=== PATIENT | female | born 1990 | race Asian ===

== ENCOUNTER 2023-08-19 17:51 | Observation (INO) | payer SELFPAY ==
[2023-08-19 18:13] VITALS: BP 109/64; BMI 33.1
== END 2023-08-19 19:07 | disposition home or self-care (01) ==
LOC: LDRP 17:51
PROVIDERS: ADMITTING PHYSICIAN Obstetrics & Gynecology; FAMILY PHYSICIAN Family Medicine
DX: O36.8130 Decreased fetal movements, third trimester, not applicable or unspecified (principal); Z3A.32 32 weeks gestation of pregnancy
CPT/HCPCS: G0378

== ENCOUNTER 2023-08-24 16:16 | Inpatient (IN) | payer OTHER, SELFPAY ==
[2023-08-24 17:00] VITALS: BP 111/60; BMI 33.1
[2023-08-24 17:02] LABS: Hematocrit 40.3 % (37.0-47.0); Hemoglobin 13.7 g/dL (12.0-16.0); Mean Corpuscular Hgb 29.9 pg (27.0-31.0); Platelet Count 133 10^3/uL (130-400); Red Blood Cell Count 4.58 10^6/uL (4.20-5.40); Red Cell Dist. Width 13.1 % (11.5-14.5); White Blood Cell Count 6.9 10^3/uL (4.8-10.8)
[2023-08-24 17:09] LABS: Urine Albumin Negative (Neg - Trace); Urine Bilirubin Negative (Negative); Urine Character Clear (Clear); Urine Color Yellow; Urine Glucose 2+ (Negative); Urine Ketone Negative (Negative); Urine Leukocyte Trace (Negative); Urine Nitrite Negative (Negative); Urine Occult Blood Negative (Negative); Urine Specific Gravity 1.015 (<1.030); Urine Urobilinogen Negative (Neg - 1+)
[2023-08-24 17:13] LABS: ALT (SGPT) 70 U/L (0-35); AST (SGOT) 39 U/L (14-36); Albumin 3.2 g/dl (3.5-5.0); Alkaline Phosphatase 117 U/L (38-126); Blood Urea Nitrogen 5 mg/dl (7-17); Calcium 8.8 mg/dl (8.4-10.2); Carbon Dioxide 22 mmol/L (22-30); Chloride 104 mmol/L (98-107); Estimated Creatinine Clearance > 125 ml/min; Glucose 123 mg/dl (70-99); Potassium 4.2 mmol/L (3.5-5.1); Sodium 134 mmol/L (135-145); Total Bilirubin 0.6 mg/dl (0.2-1.3); eGFR > 60.00
[2023-08-24 17:21] LABS: Urine Red Blood Cell None Seen /HPF (0-2); Urine Squamous Cell >30 /LPF (Few); Urine White Cell 0-2 /HPF (0-5)
[2023-08-24 17:31] LABS: Protein/creatinine Ratio 0.1; Urine Protein 7 mg/dl
[2023-08-24 20:47] LABS: % Basophils 0.2 % (0-2); % Eosinophils 0.8 % (0-6); % Immature Granulocytes 0.9 % (0-0.5); % Lymphocytes 16.2 % (20.5-51.1); % Monocytes 6.4 % (1.7-9.3); % Neutrophils 75.5 % (42.2-75.2); Absolute Eosinophils 0.1 10^3/uL (0-0.7); Absolute Immature Granulocytes 0.1 10^3/uL (0-0.05); Absolute Lymphocytes 1.5 10^3/uL (1.2-3.4); Absolute Monocytes 0.6 10^3/uL (0.1-0.6); Absolute Neutrophils 6.7 10^3/uL (1.4-6.5); Hematocrit 42.1 % (37.0-47.0); Hemoglobin 14.4 g/dL (12.0-16.0); Mean Corp Hgb Conc. 34.2 g/dL (33.0-37.0); Mean Corpuscular Hgb 29.6 pg (27.0-31.0); Mean Corpuscular Volume 86.6 fL (81.0-99.0); Mean Platelet Volume 12.7 fL (7.4-10.4); Nucleated Red Blood Cells % 0 %; Platelet Count 138 10^3/uL (130-400); Red Blood Cell Count 4.86 10^6/uL (4.20-5.40); Red Cell Dist. Width 13.1 % (11.5-14.5); White Blood Cell Count 8.9 10^3/uL (4.8-10.8)
[2023-08-24] MEDS: TYLENOL 650 MG PO (23:24)
[2023-08-24] MEDS: ACTIGALL 300 MG PO (23:26)
[2023-08-24] MEDS: LR 1000 IV (23:29)
--- NOTE | 2023-08-25 04:09 | DOWNTIME ---
There was a [employer] Client [employer] Supervisor Downtime on 08/25/2023 from 0111 to 08/25/2023 at 0405. Downtime documentation of patient's care, including medication administrations, has been reconciled in the electronic record per guidelines. Refer to the
patient's paper chart under the miscellaneous tab to see printed paper medication records and downtime forms.
[2023-08-25] MEDS: LR 1000 IV (06:30)
[2023-08-25 06:51] LABS: Hematocrit 41.4 % (37.0-47.0); Hemoglobin 14.3 g/dL (12.0-16.0); Mean Corp Hgb Conc. 34.5 g/dL (33.0-37.0); Mean Corpuscular Hgb 30.3 pg (27.0-31.0); Mean Corpuscular Volume 87.7 fL (81.0-99.0); Mean Platelet Volume 12.1 fL (7.4-10.4); Platelet Count 126 10^3/uL (130-400); Red Blood Cell Count 4.72 10^6/uL (4.20-5.40); Red Cell Dist. Width 13.1 % (11.5-14.5)
[2023-08-25 07:09] LABS: ALT (SGPT) 83 U/L (0-35); AST (SGOT) 48 U/L (14-36); Albumin 3.5 g/dl (3.5-5.0); Alkaline Phosphatase 137 U/L (38-126); Blood Urea Nitrogen 4 mg/dl (7-17); Calcium 8.8 mg/dl (8.4-10.2); Carbon Dioxide 21 mmol/L (22-30); Chloride 109 mmol/L (98-107); Estimated Creatinine Clearance > 125 ml/min; Glucose 87 mg/dl (70-99); Potassium 4.1 mmol/L (3.5-5.1); Sodium 134 mmol/L (135-145); Total Bilirubin 0.9 mg/dl (0.2-1.3); Total Protein 6.2 g/dl (6.3-8.2); eGFR > 60.00
[2023-08-25] MEDS: TYLENOL 1000 MG PO (07:09)
[2023-08-25] MEDS: ANCEF 10 IV (07:10)
[2023-08-25] MEDS: BICITRA 30 ML PO (07:10)
[2023-08-25] MEDS: BENADRYL 25 MG IV (11:25)
[2023-08-25] MEDS: TORADOL 15 MG IV ×2 (14:10→20:29)
[2023-08-25] MEDS: ACTIGALL 300 MG PO (20:29)
[2023-08-26] MEDS: TORADOL 15 MG IV ×2 (02:04→08:32)
[2023-08-26 05:55] LABS: Hematocrit 33.5 % (37.0-47.0); Hemoglobin 11.6 g/dL (12.0-16.0); Mean Corp Hgb Conc. 34.6 g/dL (33.0-37.0); Mean Corpuscular Hgb 29.9 pg (27.0-31.0); Mean Corpuscular Volume 86.3 fL (81.0-99.0); Mean Platelet Volume 12.2 fL (7.4-10.4); Platelet Count 116 10^3/uL (130-400); Red Blood Cell Count 3.88 10^6/uL (4.20-5.40); White Blood Cell Count 10.1 10^3/uL (4.8-10.8)
[2023-08-26 06:24] LABS: ALT (SGPT) 53 U/L (0-35); AST (SGOT) 36 U/L (14-36); Albumin 2.6 g/dl (3.5-5.0); Alkaline Phosphatase 100 U/L (38-126); Direct Bilirubin 0.4 mg/dl (0.0-0.4); Total Bilirubin 0.5 mg/dl (0.2-1.3); Total Protein 4.9 g/dl (6.3-8.2)
--- NOTE | 2023-08-26 07:43 | W.PN.ANS.POP ---
Anesthesia Post Operative
- Anesthesia Post Op Note
Vital Signs Stable-See Nursing Note: Yes
Airway Patent: Yes
Adequate Pain Control: Yes
Change in Mental Status: No
Current Postoperative Nausea & Vomiting: No
Anesthesia Complications: No
General Anesthetic Recall: No
Unplanned Admission: No
Post Op Hydration Adequate: Yes
[2023-08-26] MEDS: ACTIGALL 300 MG PO ×2 (08:31→20:56)
[2023-08-26] MEDS: PRENATAL PLUS 1 TABLET PO (08:31)
[2023-08-26] MEDS: LOVENOX 40 MG SC (08:45)
[2023-08-26] MEDS: MOTRIN 600 MG PO (16:21)
[2023-08-26] MEDS: PERCOCET 5/325 1 TABLET PO (18:09)
[2023-08-26 18:33] LABS: Bile Acids (Cholylglycine) 18 umol/L (0-10)
[2023-08-27] MEDS: PERCOCET 5/325 1 TABLET PO ×4 (03:42→22:12)
[2023-08-27] MEDS: MOTRIN 600 MG PO ×2 (03:42→12:19)
[2023-08-27] MEDS: LOVENOX 40 MG SC (08:02)
[2023-08-27] MEDS: ACTIGALL 300 MG PO ×3 (08:45→20:38)
[2023-08-27] MEDS: PRENATAL PLUS 1 TABLET PO (08:46)
[2023-08-27] MEDS: SENOKOT-S 1 TABLET PO (08:46)
[2023-08-27 15:35] LABS: Syphilis/T. pallidum Ab Reflex Negative (Negative)
--- NOTE | 2023-08-27 16:11 | CM ---
Met with new parents Mr & Mrs Acevedo
Both live at listed address along with their 4 year old
Baby's name is Jake
Mom plans to breast feed and has a pump
Plan to take baby to [facility] [place]
Mom reports she has all needs for her baby including car seat
Mom and baby will have a ride home with dad
[2023-08-28] MEDS: MOTRIN 600 MG PO ×2 (01:21→08:31)
[2023-08-28] MEDS: LOVENOX 40 MG SC (08:28)
[2023-08-28] MEDS: PRENATAL PLUS 1 TABLET PO (08:29)
[2023-08-28] MEDS: ACTIGALL 300 MG PO (08:29)
[2023-08-28] MEDS: TYLENOL 650 MG PO (08:32)
[2023-08-28] MEDS: PERCOCET 5/325 1 TABLET PO (13:30)
== END 2023-08-28 14:00 | disposition home or self-care (01) | DRG 784 ==
LOC: LDRP 16:16
PROVIDERS: Obstetrics & Gynecology; ADMITTING PHYSICIAN Obstetrics & Gynecology
PROC: 10D00Z1 Extraction of Products of Conception, Low, Open Approach (ICD-10-PCS; 2023-08-25)
PROC: 0UT70ZZ Resection of Bilateral Fallopian Tubes, Open Approach (ICD-10-PCS; 2023-08-25)
DX: O26.643 Intrahepatic cholestasis of pregnancy, third trimester (principal); O99.12 Other diseases of the blood and blood-forming organs and certain disorders involving the immune mechanism complicating childbirth; Z86.718 Personal history of other venous thrombosis and embolism; Z3A.38 38 weeks gestation of pregnancy; Z37.0 Single live birth; Z30.2 Encounter for sterilization; O34.211 Maternal care for low transverse scar from previous cesarean delivery; D56.9 Thalassemia, unspecified; D69.59 Other secondary thrombocytopenia; O26.893 Other specified pregnancy related conditions, third trimester; L29.8 Other pruritus
CPT/HCPCS: 88302; 58605; 76815; 80053; 80076; 81003; 81015; 82239; 82570; 84156; 85025; 85027; 86780; 86850; 86900; 86901

== ENCOUNTER → 2024-11-29 17:13 | Outpatient (REF) | payer OTHER, SELFPAY | LOC: HWRAD 17:13 | PROVIDERS: ATTENDING PHYSICIAN Internal Medicine | DX: M54.50 Low back pain, unspecified (principal); M79.604 Pain in right leg | CPT/HCPCS: 72100 ==